=== PATIENT | female | born 1995 | race Caucasian/White ===

== ENCOUNTER 2024-02-24 17:05 | Emergency (ER) | payer SELFPAY ==
[~2024-02-24] VITALS: Ht 165.1 cm; Wt 68.0 kg
[2024-02-24 17:21] VITALS: O2SAT 98
[2024-02-24] MEDS: ACETAMINOPHEN 325MG TABLET PO ONE (18:12)
[2024-02-24 18:19] LABS: HCG SCREEN NEGATIVE
[2024-02-24] MEDS ORDERED: IBUP-2028 MT (18:58)
[2024-02-24 19:50] VITALS: BP 125/77; PULSE 84; RESP 12; TEMP 98; O2SAT 100
== END 2024-02-24 20:17 | disposition home or self-care (01) ==
LOC: ER 17:05
DX: S09.90XA Unspecified injury of head, initial encounter (principal); R07.81 Pleurodynia; F41.9 Anxiety disorder, unspecified; J45.909 Unspecified asthma, uncomplicated; I10 Essential (primary) hypertension; Y08.89XA Assault by other specified means, initial encounter; Y93.89 Activity, other specified; Y92.89 Other specified places as the place of occurrence of the external cause; Y99.8 Other external cause status
CPT/HCPCS: 71045; 82962; 84703; 99284

== ENCOUNTER 2024-04-10 09:58 | Emergency (ER) | payer MEDICAID ==
[~2024-04-10] VITALS: Ht 154.9 cm; Wt 86.0 kg
[~2024-04-10 09:58] MED LIST: IBUP-2028 MT
[2024-04-10 10:07] VITALS: O2SAT 99
[2024-04-10] MEDS ORDERED: SERT25TA MT (12:37)
[2024-04-10 13:05] VITALS: BP 141/81; PULSE 94; RESP 18; TEMP 37.05852; O2SAT 98
== END 2024-04-10 13:16 | disposition home or self-care (01) ==
LOC: ER 09:58 → EDBD 09:58 → ER 13:16
DX: F41.9 Anxiety disorder, unspecified (principal); I10 Essential (primary) hypertension; J45.909 Unspecified asthma, uncomplicated; Z76.0 Encounter for issue of repeat prescription
CPT/HCPCS: 99283